=== PATIENT | male | born 2000 | race Caucasian/White ===

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

== ENCOUNTER 2022-01-19 17:37 | Emergency (ER) | payer OTHER, SELFPAY ==
[2022-01-19 17:41] VITALS: BP 124/66; PULSE 77; RESP 16; TEMP 37.1; O2SAT 100
--- NOTE | 2022-01-19 17:50 | ED.WOUNDLAC ---
HPI - Wound/Laceration General Chief Complaint: Upper Respiratory Infection Stated Complaint: Headache, sore throat Time Seen by Provider: 01/19/22 18:00 Source: patient and family Mode of arrival: ambulatory Limitations: no limitations History of Present Illness HPI narrative: Jean Pierre is a 21-year-old male patient presenting to the clinic today with complaints of sore throat, headache, fever, chills, runny nose, cough, and congestion x1 day. He does go to college and stays in a dorm. He denies that he has been around anybody with possible Covid. He has not tested himself for Covid. Does report that he gets Covid tested weekly and the last test was last Wednesday and it was negative at that time. Unknown how high his fever was as he did not check his temperature. After being tested for influenza and being positive in the clinic he stated that his whole friend group influenza A. Related Data Allergies Allergy/AdvReac Type Severity Reaction Status Date / Time No Known Allergies Allergy Unverified 01/19/22 17:51 Review of Systems Review of Systems: Pertinent positives per HPI. Patient denies any rash, visual changes, dizziness, shortness of breath, chest pain, palpitations, nausea, vomiting, diarrhea, constipation, abdominal pain, or any urinary issues. PMFSH Comments At the time of my signature, I reviewed and agree with the nursing past medical, surgical, social, and family history. There is no relevant family history pertinent to the patient complaint. Exam Narrative: General: Well-developed, well nourished, mildly ill-appearing Head: Normocephalic, atraumatic Eyes: Pupils equally round and reactive to light bilaterally, EOM intact, sclera and conjunctive clear, no discharge, lids normal Ears: TMs intact and clear, ear canals clear, no drainage, grossly hearing normal. Nose: Nares patent, clear nasal discharge, mild inflammation, no sinus tenderness. Mouth: Oral pharynx without lesions or masses, good dentition, MMM. Postnasal drip, oropharynx red Neck: Supple, trachea midline, no enlargement of anterior or posterior cervical nodes, no thyroid masses or goiter palpable. Cardio: Regular rate and rhythm, s1 and s2 normal, no murmur appreciated. Resp: Clear to auscultation bilaterally, no rhonchi, rales, wheezing or rubs Course Course Emergency Course: Portions of this record may have been created with voice recognition software. Level of Care: Express Care Visit Vital Signs Vital signs: Vital Signs Temperature 37.1 C 01/19/22 17:41 Pulse Rate 77 01/19/22 17:41 Respiratory Rate 16 01/19/22 17:41 Blood Pressure 124/66 01/19/22 17:41 Pulse Oximetry 100 01/19/22 17:41 Temperature 37.1 C 01/19/22 17:41 Pulse Rate 77 01/19/22 17:41 Respiratory Rate 16 01/19/22 17:41 Blood Pressure 124/66 01/19/22 17:41 Pulse Oximetry 100 01/19/22 17:41 Vital signs reviewed MDM - Wound/Laceration MDM Narrative Medical decision making narrative: At the time of visit patient appears to be mildly ill. Symptoms have only been going on for 1 day. He reports having fever and chills although he did not take his temperature. Has flulike symptoms. Strep screen and Covid testing negative in the clinic. Influenza A positive. Only 1 day of symptoms so I will treat with Tamiflu. Differential Diagnosis Differential diagnosis: Likely other (Strep pharyngitis, Covid, viral syndrome, upper respiratory infection) Discharge Plan Discharge Clinical Impression: Influenza A Patient Disposition: Home, Self-Care Condition: Stable Instructions: Antibiotic Form Additional Instructions: Strep screen was negative in the clinic. Will send for culture Covid testing negative in the clinic. Influenza A positive in the clinic Tamiflu as prescribed. Increase fluids and stay well hydrated Tylenol/motrin for pain/fever Flonase and OTC antihistamines as directed Vicks vapor rub to open sinuses
== END 2022-01-19 18:40 | disposition home or self-care (01) ==
PROVIDERS: Emergency Provider Nurse Practitioner Family; PCP Pediatrics
DX: J10.1 Influenza due to other identified influenza virus with other respiratory manifestations (principal); Z20.822 Contact with and (suspected) exposure to COVID-19
CPT/HCPCS: 87081; 87426; 87804; 87880; 99213; C9803; G0463

== ENCOUNTER 2024-09-11 15:00 | Outpatient (RCR) | payer OTHER, SELFPAY ==
--- NOTE | 2024-06-15 17:55 | OPREHPOC ---
Outpatient Therapy Plan of Care This is a Multidisciplinary Plan of Care that may contain components documented by all disciplines (PT, OT, and ST.) PT Problem 1 PT Problem #1 Knowledge Deficit PT Goal 1 Goal [place] with HEP Target Visit 5 PT Problem 2 PT Problem #2 Pain PT Goal 1 Goal Patient will report no pain greater than 2/10 with ambulation Target Visit 10 PT Problem 3 PT Problem #3 Impaired Range of Motion PT Goal 1 Goal Achieve 130 degrees of R knee flexion for improve foot clearance and squatting Target Visit 10 PT Goal 2 Goal Patient will improve R hip extension to 20 degrees Target Visit 10 PT Problem 4 PT Problem #4 Impaired Gait PT Goal 1 Goal Ambulate independent of AD with even stride length bilaterally Target Visit 10
--- NOTE | 2024-06-15 17:55 | PTOPEVAL1 ---
Assessment and note entered by Sarthak Posadas, PT Evaluation Information Assessment Status Evaluation Diagnosis S72.8X1A- Right Femur Fracture ICD-10 Condition Codes (PT) Pain in right hip M25.551,M25.561 Onset 05/30/24 Subjective Information Initial injury came for riding an electric skateboard. Fell and had closed fracture. Had a gamma alverto insertion. Been walking weight bearing as tolerated with valarie axillary crutches starting today. Was offloading with walker prior. He is getting pain with activity but notices it most with resting. Reported Pain Level Pain Score 3: Self Report Assessment PT Clinical Summary Patient presents with poor knee mobility and poor comfort with foot placement in weight bearing. Patient will benefit from skilled therapy to address deficits to return to independent mobility , improve hip strength, and improve functional ROM of LE. Plan of Care Interventions Aquatic Therapy,Electrical Stimulation,Gait Training,Hot Pack/Cold Pack,Manual Therapy,Neuro Re-education,Therapeutic Activities,Therapeutic Exercise PT Services Indicated Yes Treatment Frequency and 2x/week for 10 visits Duration These treatments will address the objective and functional deficits as defined above. The patient will be advanced safely and appropriately in order for the patient to progress towards his/her prior level of function. Additional exercises will be introduced and as well as a comprehensive home exercise program upon discharge, if needed, ?to ensure carryover of functional gains achieved in the clinic. This treatment plan has been reviewed and agreement upon by the patient.
--- NOTE | 2024-07-10 16:03 | PCPTNOTE ---
Patient did not show up for scheduled appointment this date. Attempted to call, no VM box set up.
--- NOTE | 2024-07-13 09:09 | PCPTNOTE ---
Patient called & cancelled scheduled appointment this date due to scheduling conflict.
--- NOTE | 2024-07-21 15:36 | OPREHPOC ---
Outpatient Therapy Plan of Care This is a Multidisciplinary Plan of Care that may contain components documented by all disciplines (PT, OT, and ST.) PT Problem 1 PT Problem #1 Knowledge Deficit PT Goal 1 Goal / Goal Update [place] with HEP Target Visit 5 PT Problem 2 PT Problem #2 Pain PT Goal 1 Goal / Goal Update Patient will report no pain greater than 2/10 with ambulation Target Visit 10 Progress Met PT Problem 3 PT Problem #3 Impaired Range of Motion PT Goal 1 Goal / Goal Update Achieve 130 degrees of R knee flexion for improve foot clearance and squatting Target Visit 10 Progress Met PT Goal 2 Goal / Goal Update Patient will improve R hip extension to 20 degrees Target Visit 16 Progress Partially Met PT Problem 4 PT Problem #4 Impaired Gait PT Goal 1 Goal / Goal Update Ambulate independent of AD with even stride length bilaterally Target Visit 16 Progress Not Met PT Goal 2 Goal / Goal Update Improve R glute me strength to 4+/5 to improve lateral stability with gait and functional activity Target Visit 16 PT Goal 1 Goal / Goal Update Patient will demonstrate ability to maintain single leg stance on R LE without trunk shift for 30s to improve functional control for ADL performance Target Visit 16
--- NOTE | 2024-07-21 15:36 | PTOPPROG ---
Assessment and note entered by Sarthak Posadas, PT Evaluation Information Assessment Status Progress Diagnosis S72.8X1A- Right Femur Fracture ICD-10 Condition Codes (PT) Pain in right hip M25.551,M25.561 Onset 05/30/24 Subjective Information Reports that pain is fully controlled. He is still using a crutch for distance as he does not feel even and comfortable. Feels that there is a big mental component to his walking at this time as he feels a lot more comfortable. Still feels some weakness. Follows up with MD 07/25/24. Assessment PT Clinical Summary Patient has made excellent ROM progress. Still showing significant weakness to both glute med and glute max. Will benefit form skilled therapy to address these deficits to improve gait and functional mobility as he still has severe difficulty with gait stability and functional movement. Plan of Care Interventions Aquatic Therapy,Electrical Stimulation,Gait Training,Hot Pack/Cold Pack,Manual Therapy,Neuro Re-education,Therapeutic Activities,Therapeutic Exercise PT Services Indicated Yes Treatment Frequency and 1-2x/week for 8 visits Duration These treatments will address the objective and functional deficits as defined above. The patient will be advanced safely and appropriately in order for the patient to progress towards his/her prior level of function. Additional exercises will be introduced and as well as a comprehensive home exercise program upon discharge, if needed, ?to ensure carryover of functional gains achieved in the clinic. This treatment plan has been reviewed and agreement upon by the patient.
--- NOTE | 2024-09-08 11:07 | OPREHPOC ---
Outpatient Therapy Plan of Care This is a Multidisciplinary Plan of Care that may contain components documented by all disciplines (PT, OT, and ST.) PT Problem 1 PT Problem #1 Knowledge Deficit PT Goal 1 Goal / Goal Update [place] with HEP Target Visit 5 Progress Met PT Problem 2 PT Problem #2 Pain PT Goal 1 Goal / Goal Update Patient will report no pain greater than 2/10 with ambulation Target Visit 10 Progress Met PT Problem 3 PT Problem #3 Impaired Range of Motion PT Goal 1 Goal / Goal Update Achieve 130 degrees of R knee flexion for improve foot clearance and squatting Target Visit 10 Progress Met PT Goal 2 Goal / Goal Update Patient will improve R hip extension to 20 degrees Target Visit 24 Progress Partially Met PT Problem 4 PT Problem #4 Impaired Gait PT Goal 1 Goal / Goal Update Ambulate independent of AD with even stride length bilaterally Target Visit 24 Progress Not Met PT Goal 2 Goal / Goal Update Improve R glute me strength to 4+/5 to improve lateral stability with gait and functional activity Target Visit 24 PT Goal 1 Goal / Goal Update Patient will demonstrate ability to maintain single leg stance on R LE without trunk shift for 30s to improve functional control for ADL performance Target Visit 24
--- NOTE | 2024-09-08 11:07 | PTOPPROG ---
Assessment and note entered by Sarthak Posadas, PT Evaluation Information Assessment Status Progress Diagnosis S72.8X1A- Right Femur Fracture ICD-10 Condition Codes (PT) Pain in right hip M25.551,M25.561 Onset 05/30/24 Subjective Information Reports that pain is fully controlled. He is still using a crutch for distance as he does not feel even and comfortable. Feels that there is a big mental component to his walking at this time as he feels a lot more comfortable. Still feels some weakness. Follows up with MD 07/25/24. Assessment PT Clinical Summary Patient has made excellent progress towards hip strength and gait, but remains with notable gait deviations and lack of full lateral stability making single leg and dynamic activity difficult and putting him at risk of fall. Patient will continue to benefit from skilled therapy to address these deficits for hip strength and dynamic gait ability for age appropriate activity. Plan of Care Interventions Aquatic Therapy,Electrical Stimulation,Gait Training,Hot Pack/Cold Pack,Manual Therapy,Neuro Re-education,Therapeutic Activities,Therapeutic Exercise PT Services Indicated Yes Treatment Frequency and 2x/week for 8 visits Duration These treatments will address the objective and functional deficits as defined above. The patient will be advanced safely and appropriately in order for the patient to progress towards his/her prior level of function. Additional exercises will be introduced and as well as a comprehensive home exercise program upon discharge, if needed, ?to ensure carryover of functional gains achieved in the clinic. This treatment plan has been reviewed and agreement upon by the patient.
== END 2024-09-13 23:59 | disposition home or self-care (01) ==
LOC: ANHGOSHPT 15:00
PROVIDERS: PCP Pediatrics
DX: S72.8X1A Other fracture of right femur, initial encounter for closed fracture (principal)
CPT/HCPCS: 97016; 97110; 97112; 97140; 97161; 97530

== ENCOUNTER 2024-12-15 15:30 | Outpatient (RCR) | payer OTHER, SELFPAY ==
--- NOTE | 2024-09-21 08:16 | PCPTNOTE ---
Patient called & cancelled scheduled appointment this date due to his knee hurting too badly to come in.
--- NOTE | 2024-10-09 12:58 | OPREHPOC ---
Outpatient Therapy Plan of Care This is a Multidisciplinary Plan of Care that may contain components documented by all disciplines (PT, OT, and ST.) PT Problem 1 PT Problem #1 Knowledge Deficit PT Goal 1 Goal / Goal Update [place] with HEP Target Visit 5 Progress Met PT Problem 2 PT Problem #2 Pain PT Goal 1 Goal / Goal Update Patient will report no pain greater than 2/10 with ambulation Target Visit 10 Progress Met PT Problem 3 PT Problem #3 Impaired Range of Motion PT Goal 1 Goal / Goal Update Achieve 130 degrees of R knee flexion for improve foot clearance and squatting Target Visit 10 Progress Met PT Goal 2 Goal / Goal Update Patient will improve R hip extension to 20 degrees Target Visit 28 Progress Met PT Problem 4 PT Problem #4 Impaired Gait PT Goal 1 Goal / Goal Update Ambulate independent of AD with even stride length bilaterally Patient is independent but still lacking minor stride R LE Target Visit 28 Progress Partially Met PT Goal 2 Goal / Goal Update Improve R glute me strength to 4+/5 to improve lateral stability with gait and functional activity Improved, weakness still notes d with loss of lateral stability Target Visit 28 Progress Partially Met PT Goal 1 Goal / Goal Update Patient will demonstrate ability to maintain single leg stance on R LE without trunk shift for 30s to improve functional control for ADL performance Sway still noted with R trunk lean to disengage glute med Target Visit 28 Progress Partially Met PT Goal 2 Goal / Goal Update Patient will demonstrate ability to perform light jog of 3+ mph for age appropriate functional and exercise activity Target Visit 28
--- NOTE | 2024-10-09 12:58 | PTOPPROG ---
Assessment and note entered by Sarthak Posadas, PT Evaluation Information Assessment Status Progress Diagnosis S72.8X1A- Right Femur Fracture ICD-10 Condition Codes (PT) Pain in right hip M25.551,M25.561 Onset 05/30/24 Subjective Information Reports that overall he is having pain off and on based on level of activity. Denies pain today. Feels walking is doing better as long as he is note sore but he continues to easily get sore with activity. Does not feels comfortable with dynamic activity at this time including but not limited to jumping and jogging. Still feels some weakness in functional foot swing and lateral stability. Assessment PT Clinical Summary Patient continues to see slow but positive progress at this time. He continues to have notable lateral hip weakness which can be reflected in both single leg stance and prolonged walking. We attempted brisk walking today and patient was unable to maintain pacing without loss of balance and difficulty. Patient will continue to benefit form skilled therapy to return to age appropriate dynamic activity and ADLs Plan of Care Interventions Therapeutic Exercise,Aquatic Therapy,Manual Therapy,Neuro Re-education,Therapeutic Activities, Hot Pack/Cold Pack,Electrical Stimulation,Gait Training PT Services Indicated Yes Treatment Frequency and 1x/week for 8 visits Duration These treatments will address the objective and functional deficits as defined above. The patient will be advanced safely and appropriately in order for the patient to progress towards his/her prior level of function. Additional exercises will be introduced and as well as a comprehensive home exercise program upon discharge, if needed, ?to ensure carryover of functional gains achieved in the clinic. This treatment plan has been reviewed and agreement upon by the patient.
--- NOTE | 2024-12-04 14:20 | PCPTNOTE ---
Patient called & cancelled scheduled appointment this date, did not give a reason why.
--- NOTE | 2024-12-15 17:11 | OPREHPOC ---
Outpatient Therapy Plan of Care This is a Multidisciplinary Plan of Care that may contain components documented by all disciplines (PT, OT, and ST.) PT Problem 1 PT Problem #1 Knowledge Deficit PT Goal 1 Goal / Goal Update [place] with HEP Target Visit 5 Progress Met PT Problem 2 PT Problem #2 Pain PT Goal 1 Goal / Goal Update Patient will report no pain greater than 2/10 with ambulation Target Visit 10 Progress Met PT Problem 3 PT Problem #3 Impaired Range of Motion PT Goal 1 Goal / Goal Update Achieve 130 degrees of R knee flexion for improve foot clearance and squatting Target Visit 10 Progress Met PT Goal 2 Goal / Goal Update Patient will improve R hip extension to 20 degrees Target Visit 28 Progress Met PT Problem 4 PT Problem #4 Impaired Gait PT Goal 1 Goal / Goal Update Patient will demonstrate ability to perform single leg dynamic activity at level of 80% of uninvolved leg Target Visit 32 Progress Partially Met PT Goal 2 Goal / Goal Update Improve R glute me strength to 4+/5 to improve lateral stability with gait and functional activity Target Visit 32 Progress Partially Met PT Goal 1 Goal / Goal Update Patient will demonstrate ability to maintain single leg stance on R LE without trunk shift for 30s to improve functional control for ADL performance Target Visit 32 Progress Partially Met PT Goal 2 Goal / Goal Update Patient will demonstrate ability to perform light jog of 3+ mph for age appropriate functional and exercise activity Target Visit 32 Progress Partially Met
--- NOTE | 2024-12-15 17:11 | PTOPPROG ---
Assessment and note entered by Sarthak Posadas, PT Evaluation Information Assessment Status Progress Diagnosis S72.8X1A- Right Femur Fracture ICD-10 Condition Codes (PT) Pain in right hip M25.551,Pain in right knee M25. 561 Onset 05/30/24 Subjective Information Patient reports that as far as apprehension goes, he has had a lot of confidence improvement over the past month. He reports that when he is doing single leg activity he is feeling his leg give out on him still. he has been busy and working into cardiovascular activity. Would like to continue monitored dynamic activity progression as he is still unable to perform jogging and dynamic activity without hip substitution. Assessment PT Clinical Summary Patient has made excellent progress with activity. He has shown dynamic strength improvement but still struggles with push off and dynamic activity . During dynamic testing his operative hip is currently at 65% of the uninvolved hip and will need to be at least at 80% to return to sport sat and running. Plan of Care Interventions Therapeutic Exercise,Aquatic Therapy,Manual Therapy,Neuro Re-education,Therapeutic Activities, Hot Pack/Cold Pack,Electrical Stimulation,Gait Training PT Services Indicated Yes Treatment Frequency and 1x/week for 4 visits Duration These treatments will address the objective and functional deficits as defined above. The patient will be advanced safely and appropriately in order for the patient to progress towards his/her prior level of function. Additional exercises will be introduced and as well as a comprehensive home exercise program upon discharge, if needed, ?to ensure carryover of functional gains achieved in the clinic. This treatment plan has been reviewed and agreement upon by the patient.
== END 2024-12-18 23:59 | disposition home or self-care (01) ==
LOC: ANHGOSHPT 15:30
PROVIDERS: PCP Pediatrics
DX: S72.8X1A Other fracture of right femur, initial encounter for closed fracture (principal)
CPT/HCPCS: 97014; 97016; 97110; 97112; 97530; G0283

== ENCOUNTER 2025-02-14 13:30 | Outpatient (RCR) | payer OTHER, SELFPAY ==
--- NOTE | 2025-01-19 15:45 | PCPTNOTE ---
Patient called to cancel therapy appointment this date due to family stuff coming up.
--- NOTE | 2025-01-24 16:19 | PCPTNOTE ---
Patient called & cancelled scheduled appointment this date due to illness.
--- NOTE | 2025-02-21 13:37 | PCPTNOTE ---
Patient called & cancelled scheduled appointment this date due to loosing track of time.
--- NOTE | 2025-02-26 14:39 | PTOPDC ---
Assessment and note entered by Ritika Hancock, PT, DPT Evaluation Information Assessment Status Discharge - Pt Not Present Subjective Information Pt called and cancelled his appointment d/t loosing track of time. Called and spoke with pt, states he is doing really well and does not need to continue therapy at this time. Assessment PT Clinical Summary Pt completed 31 visits of skilled therapy. His has returned to his functional baseline and no longer requires skilled services. He will be discharged at this time per his request and plans to continue his HEP.
== END 2025-02-26 15:57 | disposition home or self-care (01) ==
LOC: ANHGOSHPT 13:30
PROVIDERS: PCP Pediatrics
DX: S72.8X1A Other fracture of right femur, initial encounter for closed fracture (principal)
CPT/HCPCS: 97110; 97530